=== PATIENT | female | born 1955 | race Caucasian/White ===

== ENCOUNTER 2018-01-23 13:57 | Inpatient (IN) ==
[2018-01-23 14:25] LABS: Hematocrit 36.9 % (37.0-47.0); Hemoglobin 12.4 gm/dL (12.5-16.0); Mean Cell Volume 91.8 fl (78-100); Mean Corpuscular Hemoglobin 30.8 pg (27-31); Mean Corpuscular Hgb Conc 33.6 g/dl (32-36); Mean Platelet Volume 8.6 fl (6.0-9.5); Neutrophil # 5.5 K/mm3 (1.3-6.0); Neutrophil % 71.1 % (42-75.0); Platelet Count 228 K/mm3 (150-450); Red Blood Count 4.02 M/mm3 (4.2-5.4); Red Cell Distribution Width 12.9 % (11.5-14.0); White Blood Count 7.7 K/mm3 (4.0-10.5)
[2018-01-23 14:39] LABS: Prothrombin Time (Patient) 9.4 Seconds (9.0-11.0)
[2018-01-23 14:41] LABS: Albumin * 3.9 gm/dl (3.4-5.0); Anion Gap 12.1 mmol/L (6.8-13.8); BUN/Creatinine Ratio 26.2 (9.0-21.6); Bilirubin, Total 0.7 mg/dL (0.0-1.1); Ca. Corrected For Albumin 9.1 mg/dL (8.4-10.2); Calcium * 9.3 mg/dL (7.9-10.9); Carbon Dioxide 26.3 mmol/L (24-32.6); INR 0.94 INR (0.90-1.10); Potassium 4.4 mmol/L (3.4-4.6); Total Protein 9.1 gm/dL (6.2-8.2)
--- NOTE | 2018-01-23 15:03 | ERNOTE ---
Lower Extremity HPI - Narrative Date of Service: 01/23/18 - General Lower Extremities Pain: hip: right Time Seen by Provider: 01/23/18 14:07 Source: patient, family Exam Limitations: no limitations - Immun/Allergies/Home Medications Immunizations: IMMUNIZATION HX Immunizations Up to Date No History of Influenza Vaccine No Hx Pneumococcal Vaccination No Allergies/Adverse Reactions: Allergies Allergy/AdvReac Type Severity Reaction Status Date / Time cephalexin Allergy Verified 01/23/18 14:10 Penicillins Allergy Verified 01/23/18 14:10 Home Medications: HOME MEDICATIONS NK [No Home Medication] 01/23/18 [Last Taken Unknown] - History of Present Illness Narrative: patient fell on ice with right hip pain Occurred: just prior to arrival Location of Incident: home Method of Injury: Reports: fell, direct blow Reason for Fall: Reports: slipped, tripped Loss of Consciousness: Reports: no loss of consciousness Modifying Factors - (Improves): Reports: pain medication Modifying Factors - (Worsens): Reports: movement Associated Symptoms: Reports: unable to bear weight Other Injuries: Reports: none Review of Systems - Narrative Narrative: unremarkable - Review of Systems Constitutional: Present: See HPI EYE: Present: no symptoms reported ENT: Present: no symptoms reported Respiratory: Present: no symptoms reported Cardiology: Present: no symptoms reported Gastrointestinal/Abdominal: Present: no symptoms reported Genitourinary: Present: no symptoms reported Musculoskeletal: Present: See HPI, joint pain, joint swelling Skin: Present: no symptoms reported Neurological: Present: no symptoms reported Endocrine: Present: no symptoms reported Hematologic/Lymphatic: Present: no symptoms reported Psych: Present: no symptoms reported All Other Systems: All systems neg except as marked - Narrative Narrative: unremarkable - Patient's Past Medical History Patient History - Medical: No pertinent hx Patient History - Cardiac/Respiratory: No pertinent hx Patient History - Cancer: No Hx of Cancer Patient History - Surgical Procedures: Other Patient History - Other: None LMP (females 10-50): post menopausal - Family History Family History:: no untoward family reactions to anesthesia, no familial bleeding tendencies, no family history of clotting disorders, no family history of premature - Social History Living Situations: home Abuse History: No History of abuse Psych History: No pertinent hx Does anyone smoke in the home?: No Smoking Status: Never smoker Have you smoked in the past 12 months: No Do you dip or chew tobacco: No Patient requests Smoking Cessation Consult: No Initiate information on Smoking Cessation: No Alcohol Use: none Drug Use: none - Immunizations Immunizations Up to Date: No Hx Pneumococcal Vaccination: No History of Influenza Vaccine: No Physical Exam - Physical Exam General Appearance: Present: moderate distress Head Exam: Present: normal inspection, no evidence of injury Eye Exam: Normal inspection: bilateral, PERRL: bilateral, EOMI: bilateral Ears, Nose, Throat: Present: normal ENT inspection Neck: Present: normal inspection, nontender Respiratory: Present: no respiratory distress, normal breath sounds, no accessory muscle use, chest nontender, lungs clear Cardiovascular/Chest: Present: regular rate, rhythm, no murmur, normal peripheral pulses Peripheral Pulses: N=norm/S=strong/W=weak/B=bound/A=absent: Carotid (R): Normal , Carotid (L): Normal, Radial (R): Normal, Radial (L): Normal, Femoral (R): Normal, Femoral (L): Normal, Dorsalis-pedis (R): Normal, Dorsalis-pedis (L): Normal Gastrointestinal/Abdominal: Present: normal bowel sounds, nontender, nondistended, soft, no organomegaly Back Exam: Present: normal inspection, normal range of motion, no CVA tenderness , no vertebral tenderness Extremity Exam: Present: decreased range of motion, bony tenderness, joint swelling, other Neurological Exam: Present: alert, oriented, normal mood/affect, no motor/ sensory deficits DTR: N=norm/NB=norm/brisk/A=abs/DD=dull/dimin/HC=hyperactive: Bicep (R): Normal , Bicep (L): Normal, Tricep (R): Normal, Tricep (L): Normal, Knee (R): Normal, Knee (L): Normal, Ankle (R): Normal, Ankle (L): Normal Skin Exam: Present: normal color, warm/dry Lymphatic Exam: Present: no adenopathy ED Progress - Date and Time Seen: Date and Time: 01/23/18 14:59 unchanged - Results and Orders Patient's Lab Results:: I have reviewed the patient's lab results. - Vital Signs Patient's Vital Signs:: I have reviewed the patient's vital signs. Vital Signs: Vital Signs 01/23/18 14:04 Temperature 36.8 C Pulse Rate 73 Respiratory 16 Rate Blood Pressure 136/78 O2 Sat by Pulse 97 Oximetry - EKG EKG: NSR EKG read: Interp. by me - X-Ray X-Ray #1 X-Ray: chest Interpretation: Interp. by me - no acute process X-Ray #2 X-Ray: hip - intratrochanteric fracture right hip - Progress/Reassessment Chief Complaint: Hip Pain/Injury Progress:: Unchanged - Transfer of Care Expected Disposition: Admit Plan - Plan Plan: to be admitted case discussed with dr hickman, to be admitted to dr palmer, surgical repair in am Departure Clinical Impression: Fracture of hip, right, closed - Departure Disposition: Still a patient Condition: Fair
[2018-01-23] MEDS ORDERED: HYDROmorphone HCL 1 MG/ML DISP.SYRIN IV PRN (15:06)
[2018-01-23] MEDS ORDERED: HYDROmorphone HCL 2 MG/ML VIAL ONE (15:21)
[2018-01-23] MEDS ORDERED: ONDANSETRON HCL/PF 2 MG/ML VIAL ONE (15:31)
[2018-01-23] MEDS: ONDANSETRON HCL/PF 2 MG/ML VIAL IV PRN ×2 (15:35→22:44)
[2018-01-23] MEDS: NORMAL SALINE 1,000 ML IV PRN ×2 (15:35→23:46)
--- NOTE | 2018-01-23 16:02 | CONS ---
HPI - General Date of Service: 01/23/18 Narrative: Lucy is a 62 yo F who presents with a displaced R intertrochanteric femur fracture after a slip and fall on the ice earlier today. She denies hitting her head or any LOC. She denies any other musculoskeletal pain other than the R hip. She denies any numbness/tingling in the remainder of the RLE. - History of Present Illness Allergies/Adverse Reactions: Allergies cephalexin Allergy (Verified 01/23/18 14:10) Penicillins Allergy (Verified 01/23/18 14:10) Home Medications: Home Medications Medication Instructions Recorded Last Taken NK [No Home Medication] 01/23/18 Unknown - Patient's Past Medical History Patient History - Medical: No pertinent hx Patient History - Cardiac/Respiratory: No pertinent hx Patient History - Cancer: No Hx of Cancer Patient History - Surgical Procedures: Other Patient History - Other: None LMP (females 10-50): post menopausal - Family History Family History:: no untoward family reactions to anesthesia, no familial bleeding tendencies, no family history of clotting disorders, no family history of premature - Social History Living Situations: home Abuse History: No History of abuse Psych History: No pertinent hx Does anyone smoke in the home?: No Smoking Status: Never smoker Have you smoked in the past 12 months: No Do you dip or chew tobacco: No Patient requests Smoking Cessation Consult: No Initiate information on Smoking Cessation: No Alcohol Use: none Drug Use: none - Immunizations Immunizations Up to Date: No Hx Pneumococcal Vaccination: No History of Influenza Vaccine: No Procedures CLOSURE SKIN & SUBCUTANEOUS NEC (01/02/11) DPT ADMINISTRATION (01/02/11) Medications - Medications Current Medications: Current Medications Hydromorphone HCl (Dilaudid) 1 mg IV Q4H PRN PRN Reason: Analgesia Stop: 02/22/18 15:07 Last Admin: 01/23/18 15:30 Dose: 1 mg Sodium Chloride (Sodium Chloride 0.9%) 1,000 mls @ 125 mls/hr IV .Q8H PRN PRN Reason: HYDRATION Stop: 02/22/18 15:07 Last Admin: 01/23/18 15:35 Dose: 125 mls/hr Ondansetron HCl (Zofran) 4 mg IV Q4H PRN PRN Reason: Nausea Stop: 02/22/18 15:08 Last Admin: 01/23/18 15:35 Dose: 4 mg Review of Systems - Review of Systems Narrative: As per HPI, otherwise negative. Physical Examination - Exam Narrative: Gen: A&Ox3, NAD Resp: breathing nonlabored on RA MSK: RLE--> extremity slightly shortened, severe pain with any attempted hip motion, foot warm and well perfused with brisk cap refill, SILT in all nerve distributions of the RLE Radiology: Plain films of the R hip reviewed which demonstrate a displaced intertrochanteric femur fracture. Vital Signs: Vital Signs - Last Taken Temp 36.8 C 01/23/18 14:04 Pulse 74 01/23/18 15:30 Resp 22 H 01/23/18 15:30 BP 124/53 01/23/18 15:30 Pulse Ox 97 01/23/18 15:30 O2 Oxygen Delivery Method Room Air - Results and Findings: Narrative: 62 yo F w/ displaced R intertrochanteric femur fracture. - I counseled the patient on options today including non-operative management with bedrest, pain control, and progressive ambulation vs operative fixation. Given the patient's age and activity level, I strongly recommended operative fixation with a cephalomedullary implant. I counseled her on the risks of surgery including, but not limited to, infection, bleeding, neurovascular injury , malunion/nonunion, implant failure, avascular necrosis, persistent pain, stiffness, need for additional procedures, DVT/PE, and . After discussion , she wishes to proceed with surgery. - plan for cephalomedullary nailing of R intertrochanteric femur fracture tomorrow morning - bedrest, pham catheter, SCDs/teds - NPO @ midnight - oral/IV pain control - continue care per Medicine team Surendra Naranjo MD - Assessments/Findings (1) Fracture of hip, right, closed Problem: Acute
[2018-01-23] MEDS ORDERED: HYDROmorphone HCL 2 MG/ML VIAL IV PRN (16:15)
--- NOTE | 2018-01-23 18:20 | HP ---
Chief Complaint - Chief Complaint Date of Service: 01/23/18 Time of Service: 18:19 Chief Complaint: Fall, Right Hip Pain History of Present Illness: Lucy is a 62 yo female of good medical health who slipped on the ice rounding her car. She felt and immediately noted right hip pain. She presented to the [facility] ER and xrays showed a comminuted right intertrochanteric hip fracture. The ER contacted Orthopedics who reviewed her images and recommended surgical repair. ER contacted medicine investment professional for admission with medical clearance prior to surgery in the morning. She had a chest xray, bloodwork, and an ECG that were within normal limits. The only abnormality was a slightly elevated fasting blood glucose. - Patient's Past Medical History Patient History - Medical: No pertinent hx Patient History - Cardiac/Respiratory: No pertinent hx Patient History - Cancer: No Hx of Cancer Patient History - Surgical Procedures: Other - [place] teeth Patient History - Other: None LMP (females 10-50): post menopausal - Family History Family History:: no untoward family reactions to anesthesia, no familial bleeding tendencies, no family history of clotting disorders, no family history of premature - Family History Mother Family History - Medical: , Other - Esophageal Varices Family History - Cancer: No pertinent family hx Father Family History - Medical: , Alzheimer's Disease Family History - Cardiac/Respiratory: No pertinent hx Family History - Cancer: No pertinent family hx - Social History Living Situations: home Abuse History: No History of abuse Psych History: No pertinent hx Does anyone smoke in the home?: No Smoking Status: Never smoker Have you smoked in the past 12 months: No Do you dip or chew tobacco: No Patient requests Smoking Cessation Consult: No Initiate information on Smoking Cessation: No Alcohol Use: rarely Drug Use: none - Immunizations Immunizations Up to Date: No Hx Pneumococcal Vaccination: No History of Influenza Vaccine: No Review Of Systems (GEN) - Review of Systems Generalized/Overall Review: Present: No Symptoms Reported EENTM: Present: No Symptoms Reported Respiratory: Present: No Symptoms Reported Cardiac: Present: No Symptoms Reported Abdominal: Present: No Symptoms Reported Genitourinary: Present: No Symptoms Reported Musculoskeletal: Present: Joint Pain - Right hip Neurological: Present: No Symptoms Reported Skin: Present: No Symptoms Reported Endocrine: Present: No Symptoms Reported Misc: All systems neg except as marked Immunizations: IMMUNIZATION HX Immunizations Up to Date No History of Influenza Vaccine No Hx Pneumococcal Vaccination No Allergies/Adverse Reactions: Allergies Allergy/AdvReac Type Severity Reaction Status Date / Time cephalexin Allergy Verified 01/23/18 17:19 Penicillins Allergy Verified 01/23/18 17:19 Home Medications: HOME MEDICATIONS NK [No Home Medication] 01/23/18 [Last Taken Unknown] Exam - Exam Vital Signs: Vital Signs - Last Taken Temp 36.9 C 01/23/18 15:10 Pulse 74 01/23/18 15:30 Resp 22 H 01/23/18 15:30 BP 124/53 01/23/18 15:30 Pulse Ox 97 01/23/18 15:30 Constitutional: Present: Alert, Oriented x3, Cooperative ENT Exam: Present: hearing grossly normal Eye Exam: bilateral eye: normal inspection Respiratory: Present: lungs clear, normal breath sounds Cardiovascular/Chest: Present: regular rate, rhythm, no edema, no murmur Peripheral Pulses: dorsalis-pedis (R): 2+, dorsalis-pedis (L): 2+ Abdomen: Present: Normal bowel sounds, soft, nontender, nondistended, no rebound tenderness, no hepatospenomegaly, no masses Extremity: Present: no pedal edema Skin Exam: Present: normal color, warm/dry, no cyanosis Neurologic: Present: no motor/sensory deficits, alert, normal mood/affect, oriented x 3 Appearance: Present: appropriate appearance, appropriate insight, neat, no memory impairment Eye contact: Present: cooperative, good eye contact, normal speech Thoughts: Present: normal thought pattern, no apparent hallucination Diagnostic Studies: Laboratory Results WBC 7.7 K/mm3 (4.0-10.5) 01/23/18 14:20 RBC 4.02 M/mm3 (4.2-5.4) L 01/23/18 14:20 Hgb 12.4 gm/dL (12.5-16.0) L 01/23/18 14:20 Hct 36.9 % (37.0-47.0) L 01/23/18 14:20 MCV 91.8 fl (78-100) 01/23/18 14:20 MCH 30.8 pg (27-31) 01/23/18 14:20 MCHC 33.6 g/dl (32-36) 01/23/18 14:20 RDW 12.9 % (11.5-14.0) 01/23/18 14:20 Plt Count 228 K/mm3 (150-450) 01/23/18 14:20 MPV 8.6 fl (6.0-9.5) 01/23/18 14:20 Immature Gran % (Auto) 0.50 % (0.001-0.429) H 01/23/18 14:20 Immature Gran # (Auto) 0.04 K/mm3 (0.000-0.0310) H 01/23/18 14:20 Neutrophils % 71.1 % (42-75.0) 01/23/18 14:20 Lymphocytes % 22.8 % (20-51) 01/23/18 14:20 Monocytes % 4.9 % (0.0-9) 01/23/18 14:20 Eosinophils % 0.3 % (0.0-3.0) 01/23/18 14:20 Basophils % 0.4 % (0.0-1.0) 01/23/18 14:20 Nucleated RBC % 0.0 k/mm3 (0-1) 01/23/18 14:20 Neutrophils # 5.5 K/mm3 (1.3-6.0) 01/23/18 14:20 Lymphocytes # 1.76 k/mm3 (1.5-3.5) 01/23/18 14:20 Monocytes # 0.4 k/mm3 (0.0-1.0) 01/23/18 14:20 Eosinophils # 0.0 k/mm3 (0.0-0.7) 01/23/18 14:20 Absolute Basophils 0.0 k/mm3 (0.0-0.1) 01/23/18 14:20 PT 9.4 Seconds (9.0-11.0) 01/23/18 14:20 INR (Anticoag Therapy) 0.94 INR (0.90-1.10) 01/23/18 14:20 PTT ([place]) 21.7 Seconds (24-32) L 01/23/18 14:20 Sodium 132 mmol/L (132-142) 01/23/18 14:20 Plasma Sodium 133 mmol/L (130-142) 01/23/18 14:20 Potassium 4.4 mmol/L (3.4-4.6) 01/23/18 14:20 Chloride 98 mmol/L (97-106) 01/23/18 14:20 Carbon Dioxide 26.3 mmol/L (24-32.6) 01/23/18 14:20 Anion Gap 12.1 mmol/L (6.8-13.8) 01/23/18 14:20 BUN 27 mg/dL (3-23) H 01/23/18 14:20 Creatinine 1.03 mg/dL (0.4-1.4) 01/23/18 14:20 Est GFR (Non-Af Amer) 57 mL/min (60-130) L 01/23/18 14:20 BUN/Creatinine Ratio 26.2 (9.0-21.6) H 01/23/18 14:20 Random Glucose 138 mg/dL (70-110) H 01/23/18 14:20 Calcium 9.3 mg/dL (7.9-10.9) 01/23/18 14:20 Calcium Adj for Albumin 9.1 mg/dL (8.4-10.2) 01/23/18 14:20 Total Bilirubin 0.7 mg/dL (0.0-1.1) 01/23/18 14:20 AST 17 U/L (0-48) 01/23/18 14:20 ALT 19 U/L (19-67) 01/23/18 14:20 Alkaline Phosphatase 121 U/L (50-170) 01/23/18 14:20 Total Protein 9.1 gm/dL (6.2-8.2) H 01/23/18 14:20 Albumin 3.9 gm/dl (3.4-5.0) 01/23/18 14:20 Assessment/Plan - Assessment/Plan (1) Fracture of hip, right, closed Assessment: Lucy is a 62 yo female with a right comminuted intertrochanteric hip fracture. Orthopedics have been consulted and recommend surgery. I have reviewed ECG, chest xray, and labwork and patient is medically stable for surgery. She is a very healthy 62 yo with no cardiac risk factors. Surgery planned for tomorrow morning. Will admit to acute inpatient status. Expect >2 midnights for medical clearance, surgery, and post op cares/therapy. Problem: Acute Qualifiers: Encounter type: initial encounter Qualified Code(s): S72.001A - Fracture of unspecified part of neck of right femur, initial encounter for closed fracture
--- NOTE | 2018-01-24 07:22 | PN ---
Subjective - Date and Time Seen Date: 01/24/18 Time: 07:15 Subjective Narrative: Patient seen today AOX3 no acute distress, pt stated pain is well controlled now. Pt anticipating surgery today at 8pm. she remain NPO overnight. Objective - Review of Systems Generalized/Overall Review: Reports: No Symptoms Reported EENTM: Reports: No Symptoms Reported Respiratory: Reports: No Symptoms Reported Cardiac: Reports: No Symptoms Reported Abdominal: Reports: No Symptoms Reported Genitourinary Symptoms: Reports: No Symptoms Reported Musculoskeletal Complaints: Reports: Joint Pain, Muscle Pain Neurological: Reports: No Symptoms Reported Skin: Reports: No Symptoms Reported Endocrine: Reports: No Symptoms Reported - Vitals Vitals: Last Vital Signs Temp 36.7 C 01/24/18 06:29 Pulse 74 01/24/18 06:29 Resp 18 01/24/18 06:29 BP 94/42 01/24/18 06:29 Pulse Ox 96 01/24/18 06:29 - Exam Constitutional: Present: Alert, Oriented x3, Cooperative, Well developed, No distress ENT Exam: Present: hearing grossly normal Neck: Present: non-tender, full range of motion Breasts: Present: Exam deferred Respiratory: Present: chest non-tender, lungs clear, normal breath sounds, no respiratory distress Cardiovascular/Chest: Present: normal peripheral pulses, regular rate, rhythm, no chest tenderness, no edema Abdomen: Present: Normal bowel sounds, soft, nontender, nondistended, no rebound tenderness /Rectal: Present: Exam deferred Extremity: Present: other - Right hip tender limited range of motion Skin Exam: Present: normal color, warm/dry Neurologic: Present: normal mood/affect, oriented x 3 Appearance: Present: appropriate appearance, appropriate insight Eye contact: Present: cooperative, good eye contact Thoughts: Present: normal thought pattern Cauti Physician Documentation - Urinary Catheter Management Urethral ([place]) Date of Insertion: 01/23/18 Time of Insertion: 17:48 Assessment/Plan Plan Narrative: Right hip fracture- secondary to mechanical fall X-Ray Hip: Comminuted, displaced and impacted intertrochanteric fracture of proximal right femur Pain ocntrol Ice pack to affected area [place] to gravity due to immobility EKG- NSR CXR: No acute cardiopulmonary findings - Problems/Diagnosis (1) Fracture of hip, right, closed Problem: Acute Qualifiers: Encounter type: initial encounter Qualified Code(s): S72.001A - Fracture of unspecified part of neck of right femur, initial encounter for closed fracture
--- NOTE | 2018-01-24 07:36 | PN ---
Subjective - Date and Time Seen Date: 01/24/18 Subjective Narrative: No events overnight. Pain controlled. Objective - Vitals Vitals: Last Vital Signs Temp 36.7 C 01/24/18 07:19 Pulse 74 01/24/18 07:19 Resp 18 01/24/18 07:19 BP 94/42 01/24/18 07:19 Pulse Ox 96 01/24/18 07:19 - Exam Exam Narrative: Gen: A&Ox3, NAD Resp: breathing nonlabored on RA MSK: RLE--> shortened, pain with any motion, SILT, cap refill brisk Cauti Physician Documentation - Urinary Catheter Management Urethral ([place]) Date of Insertion: 01/23/18 Time of Insertion: 17:48 Assessment/Plan Plan Narrative: 62 yo F w/ R intertrochanteric femur fracture. - to OR this am for cephalomedullary nail fixation, informed consent obtained - NPO since midnight - patient will be WBAT, ROM postoperatively - continue Medicine co-management - Problems/Diagnosis (1) Fracture of hip, right, closed Problem: Acute Qualifiers: Encounter type: initial encounter Qualified Code(s): S72.001A - Fracture of unspecified part of neck of right femur, initial encounter for closed fracture
[2018-01-24] MEDS ORDERED: RINGER'S SOLUTION,LACTATED 1,000 ML IV ONE ×4 (07:45→10:26)
[2018-01-24] MEDS ORDERED: ceFAZolin SODIUM 1 GM VIAL IV ONE (08:05)
[2018-01-24] MEDS ORDERED: BUPIVACAINE HCL/EPINEPHRINE 50 ML VIAL IJ ONE (09:16)
[2018-01-24] MEDS ORDERED: diphenhydrAMINE HCL 50 MG/ML VIAL IV PRN (09:27)
[2018-01-24] MEDS ORDERED: ACETAMINOPHEN 500 MG TABLET PO PRN (09:27)
[2018-01-24] MEDS ORDERED: MAGNESIUM HYDROXIDE 30 ML UDC PO PRN (09:27)
[2018-01-24] MEDS ORDERED: oxyCODONE HCL/ACETAMINOPHEN 1 TAB TABLET PO PRN (09:27)
[2018-01-24] MEDS ORDERED: PROMETHAZINE HCL 5 MG in DEXTROSE 5 % IN WATER 50 ML IV PRN ×2 (09:27)
[2018-01-24] MEDS ORDERED: MAG HYDROX/ALUMINUM HYD/SIMETH 30 ML UDC PO PRN (09:27)
--- NOTE | 2018-01-24 09:37 | OR ---
Operative Report - Dictated Report Narrative: Date: 01/24/2018 Surgeon: Surendra Naranjo M.D. Artist Model: Clayton Carvalho PA-C Preoperative diagnosis: Right Intertrochanteric femur fracture Postoperative diagnosis: Right Intertrochanteric femur fracture Operations and procedures: 1. Closed reduction, cephalo-medullary fixation right intertrochanteric femur fracture 2. Intraoperative interpretation of radiographs Anesthesia: Gen. 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 They were admitted to the hospital after being evaluated in the emergency department. Once the medical provider felt that they were stable for surgical treatment, the risks and benefits alternatives were discussed. The risks of , blood clots, bleeding, infection, nerve/ tendon/blood vessel injury, malunion, nonunion, failure of implants, painful implants, arthrosis, and need for additional procedures were discussed. The extremity was marked and consent was obtained on the floor. Procedure: After marking the operative extremity on the floor, the patient was taken to the operating room. A timeout was performed. IV antibiotics consisting of 1 g of Ancef was administered. A spinal anesthetic was induced by anesthesia, and the patient was then placed onto a fracture table with a well-padded perineal post. The non-operative leg was placed in a well-padded well leg sweet in lithotomy position with an SCD on the leg. The operative leg was placed in a well-padded traction boot. Longitudinal traction, internal rotation, flexion, and adduction were utilized in order to reduce the fracture. Preliminary images were attained utilizing C-arm in both the AP and lateral views. This confirmed that we had obtained adequate visualization of the fracture as well as reduction. Next the hip was then prepped and draped in a standard sterile fashion. Next, the guidewire was placed percutaneously proximal to the greater trochanter to deisy a starting point at the tip of the greater trochanter centered on the lateral view. This was advanced down to the level below the lesser trochanter. A scalpel was utilized to dissect down to the greater trochanter in order to lace the soft tissue protector down to bone. The entry reamer was then advanced down the proximal femur to the level of the lesser trochanter. The above nail was then selected and impacted into place. The outrigger was utilized in order to confirm the appropriate depth of the nail. Using the alignment device on the outrigger, a lily incision was made over the lateral femur. Sharp dissection was carried through the iliotibial band down to the proximal femur. The guidewire was was placed into the femoral head in a center center position on AP and lateral views. A tip apex distance less than 25 mm combined was obtained. Once we felt that we had placed the guidewire in the appropriate position, it was measured. Next the compression screw entry drill was advanced through the lateral cortex. This was then drilled down to the appropriate depth for the compression screw, again confirming that we are within the confines the bone. The derotational bar was then placed and the lag screw was drilled to the appropriate depth. The lag screw was then secured in place ensuring that we were within the confines of the bone. The compression screw was then inserted allowing for compression while releasing the traction on the leg. Using C-arm this was visualized to allow for compression across the fracture site. Once it was felt we had adequately stabilized the intertrochanteric fracture, the distal interlocking screw was placed in a static position confirmed to be the appropriate length and within the nail on both AP and lateral views. The nail was secured allowing for controlled compression and the outrigger was removed. The wounds were then thoroughly irrigated. Final images were obtained. The hip was placed through range of motion and showed no crepitance. The deep fascia was closed with 0 Vicryl, the subcutaneous tissue with 3-0 Vicryl, and the skin was closed with meche. Sterile dressings of Xeroform, 4 x 4s, and tegaderm were applied. All sponge, sharp, and instrument counts were correct prior to closing the wounds. The patient was then awoken and transferred to the postanesthesia care unit in stable condition.
[2018-01-24] MEDS ORDERED: MORPHINE SULFATE 2 MG/ML DISP.SYRIN IV PRN (09:40)
[2018-01-24] MEDS ORDERED: HYDROmorphone HCL 2 MG/ML VIAL IV ONE (10:22)
[2018-01-24] MEDS: CLINDAMYCIN PHOSPHATE 600 MG in DEXTROSE 5 % IN WATER 100 ML IV SCH ×4 (11:55→20:15)
[2018-01-24] MEDS: ONDANSETRON HCL/PF 2 MG/ML VIAL IV PRN (11:58)
[2018-01-24] MEDS: NORMAL SALINE 1,000 ML IV PRN (17:43)
[2018-01-24] MEDS: SENNOSIDES/DOCUSATE SODIUM 1 TAB TABLET PO SCH (20:15)
[2018-01-25] MEDS: NORMAL SALINE 1,000 ML IV PRN (01:52)
[2018-01-25] MEDS: oxyCODONE HCL/ACETAMINOPHEN 1 TAB TABLET PO PRN ×3 (04:23→23:40)
[2018-01-25] MEDS: CLINDAMYCIN PHOSPHATE 600 MG in DEXTROSE 5 % IN WATER 100 ML IV SCH ×2 (04:24)
[2018-01-25 06:15] LABS: Albumin * 2.5 gm/dl (3.4-5.0); Anion Gap 8.2 mmol/L (6.8-13.8); BUN/Creatinine Ratio 13.2 (9.0-21.6); Bilirubin, Total 0.6 mg/dL (0.0-1.1); Ca. Corrected For Albumin 9.2 mg/dL (8.4-10.2); Calcium * 8.3 mg/dL (7.9-10.9); Carbon Dioxide 27.6 mmol/L (24-32.6); Estimated Creat Clear 59.1; Potassium 3.8 mmol/L (3.4-4.6); Total Protein 6.3 gm/dL (6.2-8.2)
[2018-01-25 06:19] LABS: Mean Corpuscular Hemoglobin 31.2 pg (27-31); Mean Corpuscular Hgb Conc 33.9 g/dl (32-36); Mean Platelet Volume 8.1 fl (6.0-9.5); Neutrophil # 6.2 K/mm3 (1.3-6.0); Neutrophil % 74.4 % (42-75.0); Platelet Count 117 K/mm3 (150-450); Red Cell Distribution Width 13.2 % (11.5-14.0); White Blood Count 8.3 K/mm3 (4.0-10.5)
[2018-01-25 06:21] LABS: Hemoglobin 7.8 gm/dL (12.5-16.0)
[2018-01-25] MEDS: ENOXAPARIN SODIUM 40 MG/0.4 ML SYRG SC SCH (08:35)
--- NOTE | 2018-01-25 08:49 | PN ---
Subjective - Date and Time Seen Date: 01/25/18 Time: 08:40 Subjective Narrative: Patient reports no acute events overnight. She states her pain is well controlled. She has transitioned between her bed and the chair. Objective - Vitals Vitals: Last Vital Signs Temp 36.8 C 01/25/18 07:52 Pulse 94 01/25/18 07:52 Resp 16 01/25/18 07:52 BP 113/49 01/25/18 07:52 Pulse Ox 97 01/25/18 07:52 - Abnormal Lab Findings Abnormal Lab Findings: Abnormal Lab Results 01/25/18 01/25/18 Range/Units 05:55 05:55 RBC 2.50 L (4.2-5.4) M/mm3 Hgb 7.8 L* D (12.5-16.0) gm/dL Hct 23.0 L* D (37.0-47.0) % MCH 31.2 H (27-31) pg Plt Count 117 L (150-450) K/mm3 Immature Gran % (Auto) 0.70 H (0.001-0.429) % Immature Gran # (Auto) 0.06 H (0.000-0.0310) K/mm3 Lymphocytes % 16.0 L (20-51) % Neutrophils # 6.2 H (1.3-6.0) K/mm3 Lymphocytes # 1.32 L (1.5-3.5) k/mm3 Random Glucose 119 H (70-110) mg/dL ALT 17 L (19-67) U/L Albumin 2.5 L (3.4-5.0) gm/dl - Exam Constitutional: Present: Alert, Oriented x3, Cooperative, No distress Respiratory: Present: no respiratory distress Extremity: Present: other - RLE--> mild ttp over proximal femur, SILT, distal pulses 2+, PF/DF 5/5, bandages c/d/i Thoughts: Present: normal thought pattern Cauti Physician Documentation - Urinary Catheter Management Urethral ([place]) Date of Insertion: 01/23/18 Time of Insertion: 17:48 Date of Removal: 01/25/18 Time of Removal: 08:00 Assessment/Plan Plan Narrative: -62 y/o female post-op day #1 s/p cephalomedullary nailing of R femur intertrochanteric neck fracture - WBAT - PT/OT progress as tolerated - DVT prophy: SCDs in bed, dagoberto hose, lovenox - PO diet as tolerated - Pain control with oral pain medication - Hgb 7.8, currently asymptomatic, continue to monitor - Problems/Diagnosis (1) Fracture of hip, right, closed Problem: Acute Qualifiers: Encounter type: initial encounter Qualified Code(s): S72.001A - Fracture of unspecified part of neck of right femur, initial encounter for closed fracture
[2018-01-25] MEDS: SENNOSIDES/DOCUSATE SODIUM 1 TAB TABLET PO SCH (20:38)
--- NOTE | 2018-01-25 23:55 | PN ---
Subjective - Date and Time Seen Date: 01/25/18 Time: 16:45 Subjective Narrative: Doing well. Denies fatigue, fever, chills, nausea, or vomiting. Reports pain is controlled. Objective - Vitals Vitals: Last Vital Signs Temp 38.4 C H 01/25/18 18:00 Pulse 100 01/25/18 18:00 Resp 20 01/25/18 18:00 BP 109/57 01/25/18 18:00 Pulse Ox 97 01/25/18 18:00 - Abnormal Lab Findings Abnormal Lab Findings: Abnormal Lab Results 01/25/18 01/25/18 Range/Units 05:55 05:55 RBC 2.50 L (4.2-5.4) M/mm3 Hgb 7.8 L* D (12.5-16.0) gm/dL Hct 23.0 L* D (37.0-47.0) % MCH 31.2 H (27-31) pg Plt Count 117 L (150-450) K/mm3 Immature Gran % (Auto) 0.70 H (0.001-0.429) % Immature Gran # (Auto) 0.06 H (0.000-0.0310) K/mm3 Lymphocytes % 16.0 L (20-51) % Neutrophils # 6.2 H (1.3-6.0) K/mm3 Lymphocytes # 1.32 L (1.5-3.5) k/mm3 Random Glucose 119 H (70-110) mg/dL ALT 17 L (19-67) U/L Albumin 2.5 L (3.4-5.0) gm/dl - Exam Constitutional: Present: Alert, Oriented x3, Cooperative ENT Exam: Present: hearing grossly normal Respiratory: Present: lungs clear, normal breath sounds Cardiovascular/Chest: Present: regular rate, rhythm, no murmur Abdomen: Present: Normal bowel sounds, soft, nontender, nondistended Cauti Physician Documentation - Urinary Catheter Management Urethral ([place]) Date of Insertion: 01/23/18 Time of Insertion: 17:48 Date of Removal: 01/25/18 Time of Removal: 08:00 Assessment/Plan - Problems/Diagnosis (1) Fracture of hip, right, closed Problem: Acute Qualifiers: Encounter type: initial encounter Qualified Code(s): S72.001A - Fracture of unspecified part of neck of right femur, initial encounter for closed fracture Narrative: Doing well after surgery. Plans for discharge to home tomorrow with outpatient PT. (2) Acute blood loss anemia Problem: Acute Narrative: Patient is asymptomatic. Will not transfuse unless she becomes asymptomatic.
[2018-01-26 05:57] LABS: Mean Cell Volume 91.9 fl (78-100); Mean Corpuscular Hemoglobin 31.2 pg (27-31); Mean Corpuscular Hgb Conc 33.9 g/dl (32-36); Mean Platelet Volume 8.5 fl (6.0-9.5); Platelet Count 126 K/mm3 (150-450); Red Blood Count 2.47 M/mm3 (4.2-5.4); Red Cell Distribution Width 13.2 % (11.5-14.0)
[2018-01-26 06:01] LABS: Hemoglobin 7.7 gm/dL (12.5-16.0)
[2018-01-26 06:02] LABS: Hematocrit 22.7 % (37.0-47.0)
[2018-01-26 06:08] LABS: Anion Gap 8.9 mmol/L (6.8-13.8); BUN/Creatinine Ratio 14.1 (9.0-21.6); Calcium * 8.4 mg/dL (7.9-10.9); Estimated Creat Clear 57.6; Potassium 3.9 mmol/L (3.4-4.6)
--- NOTE | 2018-01-26 07:50 | PN ---
Subjective - Date and Time Seen Date: 01/26/18 Time: 07:44 Subjective Narrative: No events overnight. Pain well controlled. Progressing well with PT. Objective - Vitals Vitals: Last Vital Signs Temp 36.7 C 01/26/18 07:31 Pulse 82 01/26/18 07:31 Resp 16 01/26/18 07:31 BP 101/44 01/26/18 07:31 Pulse Ox 96 01/26/18 07:31 - Abnormal Lab Findings Abnormal Lab Findings: Abnormal Lab Results 01/26/18 01/26/18 Range/Units 05:54 05:54 RBC 2.47 L (4.2-5.4) M/mm3 Hgb 7.7 L* (12.5-16.0) gm/dL Hct 22.7 L* (37.0-47.0) % MCH 31.2 H (27-31) pg Plt Count 126 L (150-450) K/mm3 Random Glucose 113 H (70-110) mg/dL - Exam Exam Narrative: Gen: A&Ox3, NAD Resp: breathing nonlabored on RA MSK: RLE--> dressings c/d/i, mild swelling, mild TTP, mild pain with gentle PROM , SILT, cap refill brisk Cauti Physician Documentation - Urinary Catheter Management Urethral ([place]) Date of Insertion: 01/23/18 Time of Insertion: 17:48 Date of Removal: 01/25/18 Time of Removal: 08:00 Assessment/Plan Plan Narrative: 62 yo F s/p cephalomedullary nailing of R intertrochanteric femur fracture, POD #2. - WBAT, ROM as tolerated - oral pain meds - reg diet - DVT ppx: lovenox, SCDs/teds - PT/OT- patient progressing well and passed stairs - acute blood loss anemia - Hgb 7.7, stable, vitals stable, continue to monitor - dispo: Patient ready for discharge home today Orthopedic Discharge Instructions: 1. Oral pain med script sent. 2. May change dressings every 2-3 days with 4x4 gauze and tegaderm. 3. May shower with tegaderm dressing in place. 4. PT script for mobility and progressive strengthening. 5. DVT ppx: lovenox daily for 4 weeks followed by 4 weeks of 325 mg ASA daily, knee high dagoberto hose for 6 weeks. 6. Follow up in 2 weeks in Orthopedic Clinic ([phone]). Surendra Naranjo MD - Problems/Diagnosis (1) Fracture of hip, right, closed Problem: Acute Qualifiers: Encounter type: initial encounter Qualified Code(s): S72.001A - Fracture of unspecified part of neck of right femur, initial encounter for closed fracture
[2018-01-26] MEDS: ENOXAPARIN SODIUM 40 MG/0.4 ML SYRG SC SCH (09:08)
[2018-01-26 10:23] LABS: Hemoglobin A1C 6.1 % (4.00-6.0)
[2018-01-26 10:51] VITALS: BP 112/47
--- NOTE | 2018-01-26 11:02 | DS ---
(1) Fracture of hip, right, closed Problem: Acute Qualifiers: Encounter type: initial encounter Qualified Code(s): S72.001A - Fracture of unspecified part of neck of right femur, initial encounter for closed fracture (2) Prediabetes Problem: Acute (3) Acute blood loss anemia Problem: Acute Description of Stay: Lucy is a 62 yo female admitted for right hip fracture after slipping on the ice. She was admitted and cleared for surgery. Surgery went well and she did well postoperatively. Blood sugars were a little elevated so a Hemoglobin A1c was obtained showing prediabetes. Patient was informed but wanted to work on diet. She had anemia down to hemoglobin of 7.7 due to hip fracture and surgery, but remained asymptomatic with stable vitals. Hemoglobin was stable for two straight days before discharge. Due to stable hemoglobin, normal vitals, and an asymptomatic patient no transfusion was performed. She was discharged to home with ortho follow up and outpatient PT. She will remain on blood thinners and pain medications per ortho. Procedures Performed: see notes below List Procedures: 01/24/18 - Closed reduction, Cephalo-medullary fixation of right intertrochanteric hip fracture Discharge Location: Home Disposition: Home self-care Condition: Fair Discharge Activity: Activity as tolerated Discharge Diet: Consistent carbs Referrals: Surendra Naranjo MD [Staff Physician] - 02/08/18 (Already scheduled) Problem Oriented Discharge Instructions to Patient/Family: Hip Fracture, Open Reduction and Internal Fixation for Hip Fracture Additional Patient Instructions (free text): Follow up with Orthopedics Dr Naranjo on Tuesday02/08/18 at 10:15am. Physical Therapy appt. tomorrow 01/27/18 at 9:00am. 1. Oral pain med script sent. 2. May change dressing every 2-3 days with 4x4 gauze and tegaderm. 3. May shower with the tegaderm dressing in place. 4. PT script for mobility and progressive strengthening. 5. DVT ppx: LOVENOX daily for 4 weeks followed by 4 weeks of 325mg ASA daily, knee high dagoberto hose for 6 weeks. 6. Follow up in 2 weeks with Ortho clinic on 02/08/18 at 10:15 am. Call [phone] ortho office if questions. Prescriptions (Any new or edited meds): Enoxaparin Sodium [Lovenox] 40 mg SC Q24H #26 disp.syrin oxyCODONE HCL/ACETAMINOPHEN [Percocet 5 MG/325 MG] 1 - 2 tab PO Q4H PRN #75 tablet PRN Reason: Pain Complete Home Medications List: Complete Home Medication List: Enoxaparin Sodium [Lovenox] 40 mg SC Q24H #26 disp.syrin 01/26/18 oxyCODONE HCL/ACETAMINOPHEN [Percocet 5 MG/325 MG] 1 - 2 tab PO Q4H PRN #75 tablet 01/26/18 Amb Orders for Discharge: PT Evaluation and Treatment Time Frame: 1 Week, Facility: [facility], Location: Physical Therapy
== END 2018-01-26 11:45 | disposition home or self-care (01) | DRG 481 ==
LOC: ER 13:57 → MS 15:03
PROVIDERS: ADMIT Family Medicine; ATTEND Family Medicine
DX: Z88.0 Allergy status to penicillin; R73.03 Prediabetes; D62 Acute posthemorrhagic anemia; Y92.009 Unspecified place in unspecified non-institutional (private) residence as the place of occurrence of the external cause; W00.0XXA Fall on same level due to ice and snow, initial encounter; S72.141A Displaced intertrochanteric fracture of right femur, initial encounter for closed fracture
CPT/HCPCS: 36415; 71010; 71045; 73502; 76000; 80048; 80053; 83036; 85025; 85027; 85610; 85730; 93005; 96374; 96375; 97110; 97116; 97161; 97166; 97530; 97535; 99285; J2405